=== PATIENT | male | born 1990 | race Caucasian/White ===

== ENCOUNTER → 2018-01-12 | Day surgery (SDC) | payer OTHER ==
[~2018-01-12] MED LIST: LIDOCAINE 1% PF 2 ML VIAL. ID; LIDOCAINE 2% PF Vial for OR 5 ML VIAL.; MORPHINE SULFATE 2 MG/ML DISP.SYRIN. IV; ONDANSETRON PF 4 MG/2 ML VIAL. IV; PROCHLORPERAZINE 10 MG/2 ML VIAL. IV; PROPOFOL 40 ML IV; fentaNYL PF VIAL 100 MCG/2 ML VIAL IV
[2018-01-12] MEDS: IV RINGERS,LACTATED 1000ML 1,000 ML IV (09:23)
== END | disposition home or self-care (01) ==
LOC: ENDOS 09:00
DX: K29.80 Duodenitis without bleeding (principal); K29.50 Unspecified chronic gastritis without bleeding; K21.0 Gastro-esophageal reflux disease with esophagitis; Z88.1 Allergy status to other antibiotic agents; F41.9 Anxiety disorder, unspecified; I10 Essential (primary) hypertension; Z82.49 Family history of ischemic heart disease and other diseases of the circulatory system; Z72.89 Other problems related to lifestyle; Z79.899 Other long term (current) drug therapy; F17.200 Nicotine dependence, unspecified, uncomplicated
CPT/HCPCS: 43239; 88305; 88342; J2704

== ENCOUNTER 2018-02-02 09:59 | Emergency (ER) | payer OTHER ==
[2018-02-02] MEDS: ACETAMINOPHEN 500 MG TABLET PO (10:34)
[2018-02-02] MEDS: DIPHTH,PERTUSS(ACELL),TET TOX 0.5 ML DISP.SYRIN. VAX IM (10:35)
== END 2018-02-02 11:16 | disposition home or self-care (01) ==
LOC: ER 11:16
DX: S61.012A Laceration without foreign body of left thumb without damage to nail, initial encounter (principal); I10 Essential (primary) hypertension; K21.9 Gastro-esophageal reflux disease without esophagitis; Z88.8 Allergy status to other drugs, medicaments and biological substances; Y28.8XXA Contact with other sharp object, undetermined intent, initial encounter; Y93.89 Activity, other specified; Y99.8 Other external cause status; Y92.89 Other specified places as the place of occurrence of the external cause
CPT/HCPCS: 90471; 90715; 99283-25

== ENCOUNTER → 2019-01-19 | Day surgery (SDC) | payer OTHER ==
[~2019-01-19] MED LIST changes: +HYDR-3164 PO; +HYDR12.58 PO; +IV RINGERS,LACTATED 1000ML 1,000 ML IV SCH; -LIDOCAINE 1% PF 2 ML VIAL. ID; +LIDOCAINE 1% PF 2 ML VIAL. ID PRN; +LIDOCAINE 2% PF 5 ML VIAL. ONE; -LIDOCAINE 2% PF Vial for OR 5 ML VIAL.; +LISI-334 PO; +MIDAZOLAM HCL/PF 2 MG/2 ML VIAL. IV PRN; -MORPHINE SULFATE 2 MG/ML DISP.SYRIN. IV; +OMEP20CA10 PO; -ONDANSETRON PF 4 MG/2 ML VIAL. IV; -PROCHLORPERAZINE 10 MG/2 ML VIAL. IV; +PROPOFOL 20 ML IV ONE; -PROPOFOL 40 ML IV; +SUCR1ORA5 PO; +TRAZ-118 PO; -fentaNYL PF VIAL 100 MCG/2 ML VIAL IV; +fentaNYL PF VIAL 100 MCG/2 ML VIAL IV PRN
[2019-01-19 08:10] VITALS: BP 125/74
--- NOTE | 2019-01-22 15:06 | PATHOLOGY ---
[facility] Accession Number: [id number] . 01 Material submitted: . esophagus - DISTAL ESOPHAGUS BIOPSIES. Modifiers: distal . 01 Clinical history: . History of Rojas's. . 02 Diagnosis: Esophageal biopsies, distal esophagus: - Segments of hyperplastic squamous esophageal mucosa showing focal intraepithelial neutrophils, and segment of esophagogastric mucosa showing active chronic inflammation, consistent with reflux esophagitis. (JPM:sergo; 01/22/2019) QMS/01/22/2019 . 02 Comment: Sections of the distal esophageal biopsy primarily reveal segments of focally tangentially oriented hyperplastic squamous esophageal mucosa showing focal intraepithelial neutrophils and a few eosinophils. There is also a segment of esophagogastric mucosa showing focally active moderate chronic inflammation. The findings are consistent with reflux esophagitis. There is no evidence of Rojas's change, dysplasia, or malignancy. (JPM:sergo; 01/22/2019) . 02 Electronically signed: . Anastacio Valenzuela MD, Pathologist NPI- [id number] . 01 Gross description: . Received in formalin labeled "Brodie, Horacio, distal esophagus biopsies" is a 1.1 x 0.5 x 0.1 cm aggregate of aden-brown mucosa fragments. The specimen is submitted in A1. ([facility]; 01/21/2019) SYC/SYC . 02 Pathologist provided ICD-10: K21.0 . 02 CPT . 710618 Specimen Comment: A courtesy copy of this report has been sent to Specimen Comment: [phone], . Specimen Comment: Report sent to / DR ABERNATHY Performed at: [address], [place], [place] [id number] MD Chris Hayden MD Phone: [phone] Performed at: [address] [facility] [address] [place], [place] [id number] MD Anastacio Valenzuela MD Phone: [phone]
== END ==
LOC: SURG 06:20
PROVIDERS: ATTEND Internal Medicine Gastroenterology
DX: K21.0 Gastro-esophageal reflux disease with esophagitis (principal); K22.70 Barrett's esophagus without dysplasia; I10 Essential (primary) hypertension; F41.9 Anxiety disorder, unspecified; Z88.1 Allergy status to other antibiotic agents; F17.210 Nicotine dependence, cigarettes, uncomplicated; Z72.89 Other problems related to lifestyle; Z79.899 Other long term (current) drug therapy; Z98.890 Other specified postprocedural states
CPT/HCPCS: 43239; 88305; J2001; J2704